=== PATIENT | male | born 1970 | race Caucasian/White ===

== ENCOUNTER 2020-04-02 07:51 | Emergency (ER) | payer OTHER, SELFPAY ==
[2020-04-02 07:58] VITALS: BP 182/108; PULSE 84; RESP 18; TEMP 36.6; O2SAT 97; BMI 39.0
--- NOTE | 2020-04-02 08:10 | ED.WOUNDLAC ---
HPI - Wound/Laceration General Chief Complaint: Wound/Laceration Stated Complaint: LACERATION ON RIGHT CHEEK BONE Time Seen by Provider: 04/02/20 07:57 Source: patient Mode of arrival: Ambulatory Limitations: no limitations History of Present Illness HPI narrative: 50-year-old male here for evaluation of injuries that he sustained to the right side of his face after he was hit by the latch a ratchet strap. He reports no eye pain. He does have a cut just to the right of his eye. No dental pain. Is also having somewhat of a headache. No loss of conscious. Not on anticoagulation. His last tetanus shot was 1 month ago. Related Data Allergies Allergy/AdvReac Type Severity Reaction Status Date / Time No Known Drug Allergies Allergy Verified 04/02/20 07:58 Review of Systems Constitutional Constitutional: Reports headache(s) Eyes Eyes: Denies change in vision ENT Ears, Nose, Mouth, and Throat: Denies dental pain, Denies otalgia, Reports facial pain, Reports headache(s) and Denies lip swelling Integumentary/Breasts Comments: Cut to the right side of face Neurologic Neurologic: Reports headache(s) Hematologic/Lymphatic Hematologic/Lymphatic: Denies easy bleeding and Denies easy bruising Allergic/Immunologic Allergic/Immunologic: Denies lip swelling Patient History Medical History Healthy adult (Acute) Social History Smoking Status: Never smoker Smoking Status: Never smoker alcohol intake frequency: a few times a week Substance Use Type: does not use Exam Initial Vital Signs Initial Vital Signs: Vital Signs Temperature 97.9 F 04/02/20 07:58 Pulse Rate 84 04/02/20 07:58 Respiratory Rate 18 04/02/20 07:58 Blood Pressure 182/108 H 04/02/20 07:58 Pulse Oximetry 97 04/02/20 07:58 Const General: cooperative, healthy appearing and comfortable Limitations: mental status not altered HENMT Head: laceration (Right-sided by) Ears: external ears normal Nose: external nose normal and septum normal Face and sinus: ecchymosis (Lateral portion right eye) Mouth: oral mucosae normal and lip normal Teeth and gingiva: dentition normal Eyes Pupils: PERRL EOM: EOM intact bilaterally Skin Other: 1 cm laceration just lateral to the right eye. No active bleeding. Neuro General: patient alert, patient awake and patient oriented x3 Extrem General: normal to inspection Psych Appearance: grossly normal and well kempt Procedures Laceration Repair Laceration 1: Site: face Side (If applicable): right Size (cm): 1 Description: linear Depth: simple, single layer Pre-repair: wound explored and deep structures intact Skin layer closed with: other (Chromic) Size (cm): 5-0 Number of sutures: 2 Technique: simple, interrupted Course Orders Ordered: Discontinued Medications Bacitracin (Bacitracin) 1 applic TOP NOW ONE Stop: 04/02/20 08:09 Vital Signs Vital signs: Vital Signs - 8 hr 04/02/20 07:58 Temperature 97.9 F Pulse Rate 84 Respiratory Rate 18 Blood Pressure 182/108 H Pulse Oximetry 97 MDM - Wound/Laceration MDM Narrative Medical decision making narrative: The cut to the right side of his eye was closed as described above without any anesthesia. Patient tolerated the procedure well. He was given care instructions and return precautions. I have low suspicion for fracture. Low suspicion for eye injury. Low suspicion for dental injury based on his history and physical exam. Patient was given return precautions and follow-up instructions. He expressed understanding and agreement. Discharge Plan Departure Patient Disposition: Home Clinical Impression: Laceration Instructions: DI for Laceration Repair Activity Restrictions/Additional Instructions: You can put topical antibiotic ointment over the area. The stitches are absorbable and should come out on their own. I also recommend that you placed ice around your eye has you will most likely have a black eye because of this injury. Return to the emergency department for any new or worsening symptoms
[2020-04-02] MEDS: BACITRACIN OINT 0.9 GM PCKT 1 APPLIC TOP (08:14)
== END 2020-04-02 08:12 | disposition home or self-care (01) ==
PROVIDERS: Emergency Provider Emergency Medicine
DX: S01.411A Laceration without foreign body of right cheek and temporomandibular area, initial encounter (principal); W22.8XXA Striking against or struck by other objects, initial encounter; Y99.0 Civilian activity done for income or pay
CPT/HCPCS: 12011; 99283